=== PATIENT | male | born 1970 | race Hispanic/Latino ===

== ENCOUNTER 2019-02-28 16:01 | Emergency (ER) | payer OTHER ==
[2019-02-28] MEDS ORDERED: DiphenhydrAMINE HCL 50 MG/ML VIAL ONE (17:09)
[2019-02-28] MEDS ORDERED: KETOROLAC TROMETHAMINE 30MG/ML ONE (17:10)
[2019-02-28] MEDS ORDERED: METHYLPREDNISOLONE SOD SUCC 125MG/2ML VIAL ONE (17:10)
[2019-02-28] MEDS ORDERED: FAMOTIDINE/PF 20 MG/2 ML VIAL IV ONE (17:10)
[2019-02-28 17:24] LABS: EOSINOPHILS % (AUTO) 0.8 % (0.0-8.0); LYMPHOCYTES % (AUTO) 14.8 % (21.0-51.0); MEAN CORPUSCULAR HEMOGLOBIN 33.9 pg (27.0-33.0); MEAN CORPUSCULAR HGB CONC 34.9 g/dL (32.0-36.0); MEAN CORPUSCULAR VOLUME 97.1 fL (79-99); MONOCYTES % (AUTO) 11.5 % (3.0-13.0); NEUTROPHILS % (AUTO) 71.9 % (40.0-77.0); NUCLEATED RED BLOOD CELLS 0.1 % (0.0-0.19); PLATELET COUNT (AUTO) 237 K/uL (130-400); RED BLOOD CELL COUNT(AUTO) 4.84 MIL/uL (4.50-6.20); RED CELL DISTRIBUTION WIDTH 11.9 % (11.0-15.5); WHITE BLOOD COUNT (AUTO) 7.8 K/uL (4.8-10.8)
[2019-02-28 17:33] LABS: CREATININE 0.8 mg/dL (0.5-1.5); POTASSIUM 4.1 mmol/L (3.5-5.1)
== END 2019-02-28 18:43 | disposition home or self-care (01) ==
LOC: EDH 16:01
DX: R22.1 Localized swelling, mass and lump, neck (principal); R73.9 Hyperglycemia, unspecified; J02.9 Acute pharyngitis, unspecified
CPT/HCPCS: 36415; 70360; 70490; 80048; 85025; 96374; 96375; 99285; J1200; J1885; J2930; J3490